=== PATIENT | female | born 1980 | race Caucasian/White ===

== ENCOUNTER 2021-12-17 19:11 | Emergency (ER) | payer BC ==
[2021-12-17] MEDS ORDERED: Adacel Vial IM ONE ×2 (19:56→19:59)
[2021-12-17] MEDS ORDERED: TORAdol 30 mg Injection IM ONE (19:56)
[2021-12-17] MEDS ORDERED: TORAdol 30 mg Injection ONE (19:59)
--- NOTE | 2021-12-17 20:01 | ERPHSYRPT ---
- History of Present Illness Source: patient Exam Limitations: no limitations Patient Subjective Stated Complaint: pt states she was trying to remove chicken bone from dogs moth and he clampped down on the bone and her right pointer finger at the same time causing trauma to the pointer finger. Triage Nursing Assessment: pt is alert and oriented. states pain is 8/10. pt has crush injury to tip of finger that resulted in partial loss of finger nail. Physician History: 41 yo wf w dog bite to her R 2nd digit by her [place] when she tried to get a chicken bone out of its mouth. Pt is R handed and denies other injuries. Pain is moderate. Pt needs a Tdap. Dog not UTD on shots but exhibiting no unusual behavior. Occurred: just prior to arrival Method of Injury: other (Dog bite) Quality: constant Severity of Pain-Max: moderate Severity of Pain-Current: moderate Extremities Pain Location: 2nd finger: right Modifying Factors: Improves With: movement Associated Symptoms: none Allergies/Adverse Reactions: No Known Drug Allergies Allergy (Unverified 12/17/21 19:31) Hx Tetanus, Diphtheria Vaccination/Date Given: No Travel Risk - International Travel Have you traveled outside of the country in past 3 weeks: No - Coronavirus Screening Are you exhibiting any of the following symptoms?: No - Vaccine Status Have you recieved a Covid-19 vaccination: Yes User Acceptance Tester: Moderna - Vaccination Dates Date of 2cond Vaccination (if applicable): unknown - Review of Systems Constitutional: No Symptoms Eyes: No Symptoms Ears, Nose, & Throat: No Symptoms Respiratory: No Symptoms Cardiac: No Symptoms Abdominal/Gastrointestinal: No Symptoms Genitourinary Symptoms: No Symptoms Skin: No Symptoms Neurological: No Symptoms Psychological: No Symptoms Endocrine: No Symptoms Hematologic/Lymphatic: No Symptoms Immunological/Allergic: No Symptoms - Past Medical History Pertinent Past Medical History: No - Past Surgical History Past Surgical History: Yes Female Surgical History: Hysterectomy - Social History Smoking Status: Never smoker Drug Use: none - Female History Hx Last Menstrual Period: hysterectomy Hx Now: No - Nursing Vital Signs Nursing Vital Signs: Initial Vital Signs Temperature 98.2 F 12/17/21 19:20 Pulse Rate 72 12/17/21 19:20 Respiratory Rate 18 12/17/21 19:20 O2 Sat by Pulse Oximetry 95 12/17/21 19:20 Pain Scale Pain Intensity 4 WNL - Physical Exam General Appearance: no apparent distress Eyes, Ears, Nose, Throat Exam: normal ENT inspection Neck Exam: normal inspection, non-tender, supple, full range of motion, No Brudzinski, No Kernig's, No meningismus Cardiovascular/Respiratory Exam: normal breath sounds, regular rate/rhythm, heart sounds normal Abdominal Exam: non-tender, soft Back Exam: normal inspection, normal range of motion, No CVA tenderness Shoulder Exam: normal inspection Elbow/Forearm Exam: normal inspection Wrist Exam: normal inspection Hand Exam: laceration (Distal R 2nd digit w partial amputation/Good distal sensation and capillary return) Neuro/Tendon Exam: normal motor functions Mental Status Exam: alert, oriented x 3, disoriented to person Skin Exam: normal color, warm, dry SpO2 Interpretation: normal SpO2: 95 O2 Delivery: Room Air - Course Nursing assessment & vital signs reviewed: Yes - Radiology Exams Hand X-ray Interpretation: Interpreted by me (Open fx distal 2nd digit phalanyx) Ordered Tests: Active Orders 24 hr Category Date Time Status HAND (MINIMUM 3 VIEWS) Stat Exams 12/17/21 20:23 Taken Medication Summary Discontinued Medications Generic Name Dose Route Start Last Admin Trade Name Megha PRN Reason Stop Dose Admin Hydrocodone Bitart/Acetaminophen 2 tab 12/17/21 21:00 12/17/21 21:06 Hydrocodone/Apap 5/325 1 Tab Tablet PO 12/17/21 21:01 2 tab SENT HOME W/ PATIENT ONE Administration Hydrocodone Bitart/Acetaminophen Confirm 12/17/21 21:05 Hydrocodone/Apap 5/325 1 Tab Tablet Administered 12/17/21 21:06 Dose 2 tab .ROUTE .STK-MED ONE Amoxicillin/Clavulanate Potassium 875 mg 12/17/21 21:00 12/17/21 21:06 Amox Tr/Potassium Clavulanate 875 Mg Tablet PO 12/17/21 21:01 875 mg STAT ONE Administration Amoxicillin/Clavulanate Potassium Confirm 12/17/21 21:05 Amox Tr/Potassium Clavulanate 875 Mg Tablet Administered 12/17/21 21:06 Dose 875 mg .ROUTE .STK-MED ONE Cefazolin Sodium 2 g 12/17/21 20:42 12/17/21 20:51 Cefazolin Sodium 1 Gm Vial IM 12/17/21 20:43 2 g STAT ONE Administration Cefazolin Sodium Confirm 12/17/21 20:48 Cefazolin Sodium 1 Gm Vial Administered 12/17/21 20:49 Dose 2 g .ROUTE .STK-MED ONE Diphtheria/Tetanus/Acell Pertussis 0.5 ml 12/17/21 19:56 12/17/21 20:01 Tdap --Diph,Pertuss(Acell),Tet Vac/Pf 0.5 Ml Vial IM 12/17/21 19:57 0.5 ml .ONCE ONE Administration Diphtheria/Tetanus/Acell Pertussis Confirm 12/17/21 19:59 Tdap --Diph,Pertuss(Acell),Tet Vac/Pf 0.5 Ml Vial Administered 12/17/21 20:00 Dose 0.5 ml IM .STK-MED ONE Ketorolac Tromethamine 30 mg 12/17/21 19:56 12/17/21 20:00 Ketorolac Tromethamine 30 Mg/Ml Inj IM 12/17/21 19:57 30 mg STAT ONE Administration Ketorolac Tromethamine Confirm 12/17/21 19:59 Ketorolac Tromethamine 30 Mg/Ml Inj Administered 12/17/21 20:00 Dose 30 mg .ROUTE .STK-MED ONE Sterile Water Confirm 12/17/21 20:50 Water For Injection,Sterile 10 Ml Vial Administered 12/17/21 20:51 Dose 10 ml IJ .STK-MED ONE - Progress Progress: improved Progress Note: 12/17/21 21:03 Kefzol 2gm IM 30mg IM Toradol Tdap Spoke w Dr. Frey-wants pt to call office in AM to be seen tomorrow afternoon or Fri AM/Pt obtained an appointment tomorrow at 14:00 herself Wants pt to take Augmentin/Not to ice/Elevate Counseled pt/family regarding: diagnosis, need for follow-up, rad results - Departure Departure Disposition: Home Clinical Impression: Open finger fracture Condition: Stable Critical Care Time: No Referrals: WENDI LIU MD [Primary Care Provider] - Follow up/PCP as directed Instructions: Hand Fracture (DC) Additional Instructions: Elevate hand No ice Follow up with Dr. Frey tomorrow Pain meds as needed Continue Augmentin Return to ER as needed Prescriptions: Hydrocodone/Acetaminophen [Hydrocodone-Acetamin 5-325 mg] 1 tab PO Q4HPRN PRN #6 tablet MDD 6 PRN Reason: Pain Amox Tr/Potass Clav. 875 mg [Augmentin 875-125 Tablet] 875 mg PO BID #20 tablet
[2021-12-17] MEDS ORDERED: KEFZOL 1 GM IM ONE (20:42)
[2021-12-17] MEDS ORDERED: KEFZOL 1 GM ONE (20:48)
[2021-12-17] MEDS ORDERED: Sterile H2O 10 ml IJ ONE (20:50)
[2021-12-17] MEDS ORDERED: Augmentin 875-125 Tablet PO ONE (21:00)
[2021-12-17] MEDS ORDERED: NORCO 5/325 MG PO ONE (21:00)
[2021-12-17] MEDS ORDERED: NORCO 5/325 MG ONE (21:05)
[2021-12-17] MEDS ORDERED: Augmentin 875-125 Tablet ONE (21:05)
[2021-12-17 21:22] VITALS: BP 166/100; PULSE 89
[2021-12-17 23:01] VITALS: O2SAT 95
--- NOTE | 2021-12-18 08:44 | XRAY ---
Indication: Dog bite. Comparison: None 3 view right hand demonstrates minimally displaced comminuted 2nd finger tuft fracture with soft tissue swelling/laceration. No other bony, articular, or soft tissue abnormalities.
== END 2021-12-17 21:22 | disposition home or self-care (01) ==
LOC: ED 19:11
DX: S62.600B Fracture of unspecified phalanx of right index finger, initial encounter for open fracture (principal); W54.0XXA Bitten by dog, initial encounter
CPT/HCPCS: 73130; 90471; 90715; 96372; 99283; J0690; J1885; A9270-GY